=== PATIENT | male | born 1990 | race Caucasian/White ===

== ENCOUNTER 2017-10-02 12:36 | Emergency (ER) | payer SELFPAY ==
[2017-10-02 12:55] VITALS: BP 141/97; PULSE 81; TEMP 98.8; BMI 25.0
[2017-10-02] MEDS ORDERED: LIDOCAINE HCL 2% (20ML MULTI-DOSE VIAL) NR ONE (13:21)
[2017-10-02] MEDS ORDERED: SODIUM BICARBONATE 8.4% 50 MEQ/50 ML VIAL NR ONE (13:24)
[2017-10-02] MEDS ORDERED: SODIUM BICARBONATE 8.4% 50 MEQ/50 ML VIAL ONE (13:26)
--- NOTE | 2017-10-02 13:57 | PDOC ---
History of Present Illness - General Chief Complaint: Laceration Stated Complaint: LACERATION TO LEFT FOREARM WHILE WORKING Time Seen by Provider: 10/02/17 13:24 History Source: Patient, Co-worker Exam Limitations: No Limitations - History of Present Illness Initial Comments: 10/02/17 13:51 CC: L arm lac 1 hr ago HPI: Healthy 26 y/o man presents after cutting his left arm on a piece of sharp metal one hour ago. Denies any possible foreign body, denies other injuries. ROS: no fever or chills, no redness to the wound no other injuries no pain with rom, no weakness or numbness distally Past History - Past Medical History Allergies/Adverse Reactions: Allergies Allergy/AdvReac Type Severity Reaction Status Date / Time No Known Allergies Allergy Unverified 10/02/17 12:39 Home Medications: Ambulatory Orders NK [No Known Home Medication] 10/02/17 Asthma: No COPD: No Diabetes: No Other medical history: denies - Suicide/Smoking/Psychosocial Hx Smoking History: Never smoked Have you smoked in the past 12 months: No Information on smoking cessation initiated: No Hx Alcohol Use: No Drug/Substance Use Hx: No Substance Use Type: None *Physical Exam - Vital Signs Last Vital Signs Temp Pulse Resp BP Pulse Ox 98.8 F 81 16 141/97 100 10/02/17 12:38 10/02/17 12:38 10/02/17 12:38 10/02/17 12:38 10/02/17 12:38 - Physical Exam Comments: 10/02/17 13:53 A and O x 3, NAD PERRL calm, and cooperative skin: left forearm with laceration of dorsal surface, 5.5 cm in length, clean, surgical, linear, through skin but not through fascia, skin is by ~1 cm in the center of the laceration Neuro: sensation intact distally Motor strength full, no tendon injury Procedures - Laceration/Wound Repair Left Dorsal Arm Wound Length: 5.0 to 7.5 cm Wound Explored: clean, no foreign body present Wound's Depth, Shape: superficial, linear Irrigated w/ Saline: Yes Anesthesia: 2% Lidocaine Amount of Anesthetic (ccs): 10 Wound Repaired With: Sutures Suture Size/Type: 5:0 Number of Sutures: 9 Layer Closure: No Sterile Dressing Applied: Yes Progress: 10/02/17 13:56 skin sterile prep 2% lido with neut local x 10 cc no FB 5-0 nylon running times 9 good closure bacitracin, dsd, advised ED Treatment Course - Medications Given in the ED: ED Medications Discontinued Medications Generic Name Dose Route Start Last Admin Trade Name Sofya PRN Reason Stop Dose Admin Sodium Bicarbonate 10 meq 10/02/17 13:24 10/02/17 13:26 Sodium Bicarbonate 8.4% - NR 10/02/17 13:25 10 meq ONCE ONE Administration Medical Decision Making - Medical Decision Making 10/02/17 13:57 uncomplicated skin lac, repaired by me post saline lavage and local anesthesia, no indication for antibiotics given clean linear surgical wound tetanus vaccine last one year ago, not indicated *DC/Admit/Observation/Transfer Diagnosis at time of Disposition: Laceration of forearm, left Qualifiers: Encounter type: initial encounter Qualified Code(s): S51.812A - Laceration without foreign body of left forearm, initial encounter - Discharge Dispostion Disposition: HOME Condition at time of disposition: Stable Decision to Admit order: No - Referrals - Patient Instructions Printed Discharge Instructions: DI for Laceration Repair Additional Instructions: You got stitches today for a cut on your arm. Keep it clean and dry, and keep it covered when out or when working. OK to shower with it uncovered with soap and water. Then apply bacitracin and a bandaid. Sutures need to be removed in 8 days, with your doctor or in the ER at your preference. Return to MD right away if infection, redness, swelling, pus or red streaks. - Post Discharge Activity
[2017-10-02] MEDS ORDERED: NAPROXEN 375 MG TABLET (FP) PO ONE (14:01)
[2017-10-02] MEDS ORDERED: NAPROXEN 375 MG TABLET (FP) ONE (14:04)
== END 2017-10-02 14:12 | disposition home or self-care (01) ==
LOC: FER 12:36
PROC: 0HQEXZZ Repair Left Lower Arm Skin, External Approach (ICD-10-PCS; principal; 2017-10-02)
DX: S51.812A Laceration without foreign body of left forearm, initial encounter (principal); W45.8XXA Other foreign body or object entering through skin, initial encounter; Y93.89 Activity, other specified; Y92.9 Unspecified place or not applicable
CPT/HCPCS: 99282-25